=== PATIENT | male | born 1980 | race Caucasian/White ===

== ENCOUNTER 2024-06-10 03:12 | Emergency (ER) | payer SELFPAY ==
[~2024-06-10] VITALS: Ht 180.3 cm; Wt 81.9 kg
[2024-06-10 03:18] VITALS: BP 135/68; PULSE 77; RESP 18; TEMP 98.3; O2SAT 97
[2024-06-10] MEDS ORDERED: FLO0.4C PO (03:37)
[2024-06-10] MEDS: tamsulosin 0.4mg capsule PO SCH (03:47)
== END 2024-06-10 03:48 | disposition home or self-care (01) ==
LOC: ER 03:13
DX: Z76.0 Encounter for issue of repeat prescription (principal); F15.90 Other stimulant use, unspecified, uncomplicated; Z79.899 Other long term (current) drug therapy
CPT/HCPCS: 99283